=== PATIENT | female | born 1945 | race Caucasian/White ===

== ENCOUNTER 2016-06-20 06:03 | Day surgery (SDC) | payer MEDICARE, OTHER ==
[~2016-06-20] VITALS: Ht 167.6 cm; Wt 63.0 kg
--- NOTE | 2016-07-09 08:53 | OR ---
ADMIT: 06/20/2016 RM/LOC: [facility] MR#: [id number] [id number] [place], [place] [id number] [address] [address] [place] [address] Operative/Delivery Room Report SEX: F AGE: 70 : 1945 SURGERY DATE: 06/20/2016 SURGEON: Soy Farfan MD PREPROCEDURE DIAGNOSIS: History of esophageal stricture with dysphagia. POSTPROCEDURE DIAGNOSES: 1. Small type 1 sliding hiatal hernia. 2. Distal esophageal stricture. PROCEDURE: EGD with 18 mm esophageal balloon dilatation. INDICATIONS: The patient is a 70-year-old female with problems with chronic dysphagic issues, had previous dilatation, has been on now b.i.d. antacid medicine. She still has dysphagia, but much improved from previous dilatations. Plans for repeat EGD and dilatation. FINDINGS: The patient was taken to the endoscopy suite. IV sedation was given. She was placed in left lateral decubitus position. A bite-block was placed in the patient's mouth. The gastroscope was introduced down the oropharynx, down the esophagus, into the stomach, through the pylorus and the duodenum. The duodenum appeared normal. The stomach appeared normal. Retroflexion view, there was about a 1-2 cm type 1 sliding hiatal hernia. On exam of the GE junction, there was evidence of moderate esophageal stricture and diffuse esophagitis, but much improved compared to our previous scope about 3 weeks ago. Placed an 18-20 mm balloon across the distal esophagus, dilated up to 18 mm where there was at 18 mm, evidence of esophageal mucosal splitting and some bleeding. I did this twice. I elected not to dilate any further at this point in time, but we have made some progression with our dilatations for her. We will see her back in a week to see how she is getting along. Likely proceed with vee nj moving forward. Soy Farfan MD/ bárbara JOB #: [id number] CC: Soy Farfan MD, Attending Physician Tanvi Hood APRN, Family Physician
[2016-12-16] MEDS ORDERED: CULTURELLE1 CAP PO (09:15)
[2016-12-16] MEDS ORDERED: MIRALAX PACKET17 GM PO (09:16)
[2016-12-16] MEDS ORDERED: EVISTA DPS60 MG PO (09:16)
[2016-12-16] MEDS ORDERED: FOLVITE-DPS1 MG PO (09:16)
[2016-12-16] MEDS ORDERED: DESYREL-DPS50 MG PO (09:16)
[2016-12-16] MEDS ORDERED: LEXAPRO20 MG PO (09:16)
[2016-12-16] MEDS ORDERED: MULTIPLE VITAM1 EACH PO (09:17)
[2016-12-16] MEDS ORDERED: VITAMIN B1100 MG PO (09:17)
[2016-12-16] MEDS ORDERED: TYLENOL EXTRA500 M1 PO (09:17)
[2016-12-16] MEDS ORDERED: NEURONTIN DPS400 MG PO (09:17)
[2016-12-16] MEDS ORDERED: ZESTRIL DPS20 MG PO (09:18)
[2016-12-16] MEDS ORDERED: SYMBICORT 16010.2 GM IH (09:18)
[2016-12-16] MEDS ORDERED: DUONEB DPS3 ML IH (09:18)
[2016-12-16] MEDS ORDERED: SPIRIVA18 MCG IH (09:19)
[2016-12-16] MEDS ORDERED: NICOTINE PATCH1 EAC5 TD (09:19)
[2016-12-16] MEDS ORDERED: COLACE-DPS100 MG PO (09:19)
[2016-12-16] MEDS ORDERED: MILK OF MAGNESI10 ML PO (09:20)
[2016-12-16] MEDS ORDERED: OXY IR DPS5 MG PO (09:20)
[2016-12-16] MEDS ORDERED: MAALOX DPS30 ML PO (09:20)
[2016-12-16] MEDS ORDERED: DULCOLAX-DPS10 MG PR (09:21)
== END 2016-06-20 10:00 | disposition home or self-care (01) ==
LOC: SSS 06:03
PROC: 0D738ZZ Dilation of Lower Esophagus, Via Natural or Artificial Opening Endoscopic (ICD-10-PCS; principal; 2016-06-20)
DX: K22.2 Esophageal obstruction (principal); K44.9 Diaphragmatic hernia without obstruction or gangrene; K20.9 Esophagitis, unspecified; J44.9 Chronic obstructive pulmonary disease, unspecified; F41.9 Anxiety disorder, unspecified; F17.200 Nicotine dependence, unspecified, uncomplicated; Z88.2 Allergy status to sulfonamides; Z90.89 Acquired absence of other organs; Z98.890 Other specified postprocedural states

== ENCOUNTER → 2016-12-21 | Outpatient (CLI) | payer OTHER, MEDICARE ==
[~2016-12-21] MED LIST: COLACE-DPS100 MG PO; CULTURELLE1 CAP PO; DESYREL-DPS50 MG PO; DULCOLAX-DPS10 MG PR; DUONEB DPS3 ML IH; EVISTA DPS60 MG PO; FOLVITE-DPS1 MG PO; LEXAPRO20 MG PO; MAALOX DPS30 ML PO; MILK OF MAGNESI10 ML PO; MIRALAX PACKET17 GM PO; MULTIPLE VITAM1 EACH PO; NEURONTIN DPS400 MG PO; NICOTINE PATCH1 EAC5 TD; OXY IR DPS5 MG PO; SPIRIVA18 MCG IH; SYMBICORT 16010.2 GM IH; TYLENOL EXTRA500 M1 PO; VITAMIN B1100 MG PO; ZESTRIL DPS20 MG PO
== END | disposition home or self-care (01) ==
LOC: RAD.S 11:30
DX: R09.02 Hypoxemia (principal); J90 Pleural effusion, not elsewhere classified; J98.11 Atelectasis; R06.4 Hyperventilation